=== PATIENT | male | born 1955 | race African-American/Black ===

== ENCOUNTER 2018-07-09 20:12 | Inpatient (IN) | payer MEDICARE, OTHER ==
[2018-07-09 22:21] LABS: ADD MAN DIFF? NO
[2018-07-09 22:24] LABS: WHITE BLOOD COUNT 8.3 10^3/ul (4.8-10.8)
[2018-07-09 22:24] LABS: BASOPHILS % 0.4 % (0.0-2.0); EOSINOPHILS # 0.2 10^3/ul (0.0-0.5); EOSINOPHILS % 1.8 % (0.0-7.0); HEMATOCRIT 28.1 % (42.0-52.0); HEMOGLOBIN 8.7 g/dl (14.0-18.0); LYMPHOCYTES # 1.1 10^3/ul (0.8-2.9); LYMPHOCYTES % 13.3 % (15.0-51.0); MEAN CORPUSCULAR HEMOGLOBIN 29.4 pg (29.0-33.0); MEAN CORPUSCULAR VOLUME 94.9 fl (82.0-101.0); MEAN PLATELET VOLUME 9.7 fl (7.4-10.4); MONOCYTE # 0.5 10^3/ul (0.3-0.9); MONOCYTES % 6.1 % (0.0-11.0); NEUTROPHIL # 6.5 10^3/ul (1.6-7.5); NEUTROPHILS % 78.2 % (39.0-77.0); NUCLEATED RED BLOOD CELLS% 0.2 /100WBC (0.0-0.0); PLATELET COUNT 231 10^3/UL (140-415); RED BLOOD COUNT 2.96 10^6/ul (4.70-6.10)
[2018-07-09 22:42] LABS: ALANINE AMINOTRANSFERASE 29 IU/L (13-69); ALBUMIN 2.9 g/dl (3.3-4.9); ALKALINE PHOSPHATASE 166 IU/L (42-121); ANION GAP 7 (5-13); ASPARTATE AMINO TRANSFERASE 45 IU/L (15-46); BILIRUBIN,INDIRECT 0.1 mg/dl (0-1.1); BILIRUBIN,TOTAL 0.1 mg/dl (0.2-1.3); BLOOD UREA NITROGEN 58 mg/dl (7-20); CALCIUM 9.1 mg/dl (8.4-10.2); CARBON DIOXIDE 27 mmol/L (21-31); CHLORIDE 108 mmol/L (97-110); CREATININE 2.76 mg/dl (0.61-1.24); Estimated GFR 28 mL/min (>60); GLUCOSE 201 mg/dl (70-220); POTASSIUM 3.8 mmol/L (3.5-5.1); SODIUM 142 mmol/L (135-144)
[2018-07-09] MEDS ORDERED: SOD CHLORIDE 0.9% 1,000 ML IV (23:19)
[2018-07-09] MEDS ORDERED: ONDANSETRON 4 MG INJ IV (23:30)
[2018-07-09] MEDS ORDERED: ACETAMINOPHEN 325 MG TAB PO (23:30)
[2018-07-10] MEDS ORDERED: NACL 0.9% 3 ML SYG IV (01:30)
[2018-07-10] MEDS ORDERED: ONDANSETRON 4 MG INJ IV (01:30)
[2018-07-10 05:50] LABS: ADD MAN DIFF? NO
[2018-07-10 05:53] LABS: BASOPHILS % 0.4 % (0.0-2.0); EOSINOPHILS # 0.2 10^3/ul (0.0-0.5); EOSINOPHILS % 2.6 % (0.0-7.0); HEMATOCRIT 28.4 % (42.0-52.0); HEMOGLOBIN 8.9 g/dl (14.0-18.0); LYMPHOCYTES # 1.8 10^3/ul (0.8-2.9); LYMPHOCYTES % 24.8 % (15.0-51.0); MEAN CORPUSCULAR HEMOGLOBIN 29.2 pg (29.0-33.0); MEAN CORPUSCULAR HGB CONC 31.3 g/dl (32.0-37.0); MEAN CORPUSCULAR VOLUME 93.1 fl (82.0-101.0); MEAN PLATELET VOLUME 10.1 fl (7.4-10.4); MONOCYTE # 0.8 10^3/ul (0.3-0.9); MONOCYTES % 10.9 % (0.0-11.0); NEUTROPHIL # 4.5 10^3/ul (1.6-7.5); NEUTROPHILS % 60.9 % (39.0-77.0); NUCLEATED RED BLOOD CELLS% 0.5 /100WBC (0.0-0.0); PLATELET COUNT 248 10^3/UL (140-415); RED BLOOD COUNT 3.05 10^6/ul (4.70-6.10)
[2018-07-10 05:53] LABS: WHITE BLOOD COUNT 7.3 10^3/ul (4.8-10.8)
[2018-07-10 06:22] LABS: ALANINE AMINOTRANSFERASE 30 IU/L (13-69); ALBUMIN 2.9 g/dl (3.3-4.9); ALKALINE PHOSPHATASE 170 IU/L (42-121); ANION GAP 5 (5-13); ASPARTATE AMINO TRANSFERASE 46 IU/L (15-46); BILIRUBIN,INDIRECT 0.2 mg/dl (0-1.1); BILIRUBIN,TOTAL 0.2 mg/dl (0.2-1.3); BLOOD UREA NITROGEN 59 mg/dl (7-20); CALCIUM 8.9 mg/dl (8.4-10.2); CARBON DIOXIDE 27 mmol/L (21-31); CHLORIDE 110 mmol/L (97-110); CHOL/HDL RATIO 2.6 RATIO; CHOLESTEROL 120 mg/dl (100-200); CREATININE 2.64 mg/dl (0.61-1.24); Estimated GFR 30 mL/min (>60); GLUCOSE 85 mg/dl (70-220); HDL CHOLESTEROL 45 mg/dl (30-78); LDL CHOLESTEROL,CALCULATED 47 mg/dl; MAGNESIUM 2.4 mg/dl (1.7-2.5); POTASSIUM 3.6 mmol/L (3.5-5.1); SODIUM 142 mmol/L (135-144); TRIGLYCERIDES 139 mg/dl (0-149)
[2018-07-10] MEDS: DEXTROSE 5%-0.45% NACL 1,000 ML IV ×2 (06:30→13:42)
[2018-07-10 08:00] LABS: HEMOGLOBIN A1C 6.7 % (0-5.9)
[2018-07-10] MEDS: FAMOTIDINE 20 MG INJ IV ×2 (10:02→20:58)
[2018-07-10] MEDS: HEPARIN 5,000 UNIT/1 ML VIAL SC ×2 (10:11→20:59)
[2018-07-10] MEDS: AMLODIPINE 10 MG TAB GTB (12:27)
[2018-07-10] MEDS: ISOSORBIDE DINITRATE 10 MG TAB PO ×2 (12:28→19:41)
[2018-07-10] MEDS ORDERED: ISOSORBIDE DINITRATE 5 MG TAB GTB (13:00)
[2018-07-10] MEDS: ACCU-CHEK XX ×3 (13:00→21:00)
[2018-07-10] MEDS: METOCLOPRAMIDE 5 MG TAB PO ×2 (17:49→20:59)
[2018-07-10] MEDS: FUROSEMIDE 40 MG INJ IV ×4 (17:50→22:29)
[2018-07-10] MEDS: DOCUSATE SODIUM 10 MG/ML (10ML CUP) GTB ×2 (20:58)
[2018-07-10] MEDS: ALBUTEROL/IPRATROPIUM (NEB) 3 ML AMP HHN (21:32)
[2018-07-10] MEDS: LEVETIRACETAM (100 MG/ML PO SYG) GTB (22:03)
[2018-07-10 23:36] LABS: OCCULT BLOOD STOOL POSITIVE (NEGATIVE)
[2018-07-11] MEDS: ACCU-CHEK XX ×6 (01:00→21:44)
[2018-07-11] MEDS: METOCLOPRAMIDE 5 MG TAB PO ×4 (09:13→21:06)
[2018-07-11] MEDS: DOCUSATE SODIUM 10 MG/ML (10ML CUP) GTB ×2 (09:13→20:59)
[2018-07-11] MEDS: MULTIVITAMINS/MINERALS TAB PO (09:13)
[2018-07-11] MEDS: LEVETIRACETAM (100 MG/ML PO SYG) GTB ×2 (09:14→21:05)
[2018-07-11] MEDS: ESCITALOPRAM 10 MG TAB GTB (09:14)
[2018-07-11] MEDS: ISOSORBIDE DINITRATE 10 MG TAB PO ×3 (09:14→21:06)
[2018-07-11] MEDS: FUROSEMIDE 40 MG INJ IV ×3 (09:15→21:06)
[2018-07-11] MEDS: FAMOTIDINE 20 MG INJ IV ×2 (09:15→21:06)
[2018-07-11] MEDS ORDERED: GLUCOSE GEL 15 GRAM TUBE PO ×2 (15:30)
[2018-07-11] MEDS ORDERED: GLUCAGON 1 MG INJ IM (15:30)
[2018-07-11] MEDS ORDERED: GLUCOSE GEL 15 GRAM TUBE BUCCAL (15:30)
[2018-07-11] MEDS ORDERED: DEXTROSE 50% 50 ML SYRINGE IV ×2 (15:30)
[2018-07-11] MEDS: INSULIN ASPART [NOVOLOG] 3 ML PEN SC ×2 (17:26→21:00)
[2018-07-11] MEDS ORDERED: INSULIN ASPART [NOVOLOG] 3 ML PEN SC (18:00)
[2018-07-11 18:46] LABS: ADD MAN DIFF? NO
[2018-07-11 18:48] LABS: BASOPHILS % 0.3 % (0.0-2.0); EOSINOPHILS # 0.2 10^3/ul (0.0-0.5); EOSINOPHILS % 2.4 % (0.0-7.0); HEMATOCRIT 27.8 % (42.0-52.0); HEMOGLOBIN 8.8 g/dl (14.0-18.0); LYMPHOCYTES # 1.6 10^3/ul (0.8-2.9); LYMPHOCYTES % 25.3 % (15.0-51.0); MEAN CORPUSCULAR HGB CONC 31.7 g/dl (32.0-37.0); MEAN CORPUSCULAR VOLUME 94.9 fl (82.0-101.0); MEAN PLATELET VOLUME 10.3 fl (7.4-10.4); MONOCYTE # 0.7 10^3/ul (0.3-0.9); MONOCYTES % 11.1 % (0.0-11.0); NEUTROPHIL # 3.8 10^3/ul (1.6-7.5); NEUTROPHILS % 60.6 % (39.0-77.0); NUCLEATED RED BLOOD CELLS% 0.3 /100WBC (0.0-0.0); PLATELET COUNT 244 10^3/UL (140-415); RED BLOOD COUNT 2.93 10^6/ul (4.70-6.10); RED CELL DISTRIBUTION WIDTH 18.6 % (11.5-14.5)
[2018-07-11 18:48] LABS: WHITE BLOOD COUNT 6.3 10^3/ul (4.8-10.8)
[2018-07-11 19:09] LABS: INR 0.98; PROTIME 13.1 Sec (11.9-14.9)
[2018-07-11 19:36] LABS: ANION GAP 5 (5-13); BLOOD UREA NITROGEN 56 mg/dl (7-20); CALCIUM 8.8 mg/dl (8.4-10.2); CARBON DIOXIDE 27 mmol/L (21-31); CHLORIDE 110 mmol/L (97-110); CREATININE 2.82 mg/dl (0.61-1.24); Estimated GFR 27 mL/min (>60); GLUCOSE 155 mg/dl (70-220); MAGNESIUM 2.2 mg/dl (1.7-2.5); PHOSPHORUS 4.2 mg/dl (2.5-4.9); POTASSIUM 3.9 mmol/L (3.5-5.1); SODIUM 142 mmol/L (135-144)
[2018-07-11] MEDS: ACETAMINOPHEN 1000MG/100ML IV 100 ML IVPB (21:32)
[2018-07-12] MEDS: ACCU-CHEK XX ×5 (00:09→13:14)
[2018-07-12] MEDS: hydrALAzine 20 MG INJ IV (05:43)
[2018-07-12] MEDS: DOCUSATE SODIUM 10 MG/ML (10ML CUP) GTB (08:14)
[2018-07-12] MEDS: LEVETIRACETAM (100 MG/ML PO SYG) GTB (08:14)
[2018-07-12] MEDS: ESCITALOPRAM 10 MG TAB GTB (08:14)
[2018-07-12] MEDS: MULTIVITAMINS/MINERALS TAB PO (08:15)
[2018-07-12] MEDS: ISOSORBIDE DINITRATE 10 MG TAB PO ×2 (08:15→13:15)
[2018-07-12] MEDS: FAMOTIDINE 20 MG INJ IV (08:16)
[2018-07-12] MEDS: INSULIN ASPART [NOVOLOG] 3 ML PEN SC (13:21)
== END 2018-07-12 15:15 | disposition hospice, inpatient (51) | DRG 638 ==
LOC: 5EC 23:20 → E/R 20:12
PROVIDERS: Internal Medicine
DX: E11.649 Type 2 diabetes mellitus with hypoglycemia without coma (principal); G93.49 Other encephalopathy; I31.3 Pericardial effusion (noninflammatory); R18.8 Other ascites; N17.9 Acute kidney failure, unspecified; E11.22 Type 2 diabetes mellitus with diabetic chronic kidney disease; I12.9 Hypertensive chronic kidney disease with stage 1 through stage 4 chronic kidney disease, or unspecified chronic kidney disease; N18.4 Chronic kidney disease, stage 4 (severe); K59.00 Constipation, unspecified; D63.8 Anemia in other chronic diseases classified elsewhere; Z66 Do not resuscitate
CPT/HCPCS: 36415; 71045; 74176; 80048; 80053; 80061; 82270; 82962; 83036; 83735; 84100; 84443; 85025; 85610; 87081; 92610; 93306; 94664; 97161; 99285-25